=== PATIENT | male | born 1980 | race Caucasian/White ===

== ENCOUNTER 2018-05-12 16:00 | Emergency (ER) | payer BC ==
[2018-05-12] MEDS ORDERED: Loperamide 2 MG Tab PO ONE (17:39)
[2018-05-12] MEDS ORDERED: Ondansetron 4 MG Tab.DIS PO ONE (17:39)
--- NOTE | 2018-05-12 17:39 | EDM.PDOC ---
ED HPI GENERAL MEDICAL PROBLEM - General Chief Complaint: General Stated Complaint: N\V, Loose stools, fever Time Seen by Provider: 05/12/18 16:30 Source of Information: Reports: Patient History Limitations: Reports: No Limitations - History of Present Illness INITIAL COMMENTS - FREE TEXT/NARRATIVE: 4 day history of nausea/emesis/loose stools. Diarrhea and cramping was main issue. Took PeptoBismol with minimal relief. Only several episodes of emesis. Overall things have improved. Appetite is still down. Needs [place] note. Some sweating/hot flashes reported. No other acute changes per patient. - Related Data Allergies Allergy/AdvReac Type Severity Reaction Status Date / Time No Known Allergies Allergy Verified 05/12/18 16:04 Home Meds: Home Meds Insulin Glargine,Hum.Rec.Anlog [[place] Solostar] 6 unit SQ DAILY 05/12/18 [ History] Lisinopril 10 mg PO DAILY@2100 05/12/18 [History] SitaGLIPtin [Januvia] 100 mg PO DAILY 05/12/18 [History] metFORMIN [Glucophage XR] 500 mg PO BIDMEALS 05/12/18 [History] Past Medical History Cardiovascular History: Reports: Hypertension Endocrine/Metabolic History: Reports: Diabetes, Type II, Obesity/BMI 30+ Social & Family History - Tobacco Use Smoking Status *Q: Never Smoker Second Hand Smoke Exposure: No - Caffeine Use Caffeine Use: Reports: None - Recreational Drug Use Recreational Drug Use: No ED ROS GENERAL - Review of Systems Review Of Systems: See Below Constitutional: Reports: Chills, Fatigue, Decreased Appetite, Other (hot flashes ). Denies: Weight Loss HEENT: Reports: No Symptoms Respiratory: Reports: No Symptoms Cardiovascular: Reports: No Symptoms GI/Abdominal: Reports: Abdominal Pain (crampy), Diarrhea, Decreased Appetite, Nausea, Vomiting. Denies: Black Stool, Bloody Stool, Constipation, Difficulty Swallowing, Distension, Hematemesis, Hematochezia : Reports: No Symptoms Musculoskeletal: Reports: Other (generalized aches) Skin: Reports: No Symptoms Neurological: Reports: No Symptoms. Denies: Headache Psychiatric: Reports: No Symptoms ED EXAM, GENERAL - Physical Exam Exam: See Below Exam Limited By: No Limitations General Appearance: Alert, WD/WN, No Apparent Distress, Obese Eye Exam: Bilateral Eye: EOMI, PERRL Ears: Normal External Exam, Normal Canal Nose: Normal Inspection Throat/Mouth: Normal Inspection, Normal Voice, No Airway Compromise Head: Atraumatic, Normocephalic Neck: Normal Inspection, Supple, Non-Tender, Full Range of Motion. No: Lymphadenopathy (L), Lymphadenopathy (R) Respiratory/Chest: No Respiratory Distress, Lungs Clear, Normal Breath Sounds, No Accessory Muscle Use Cardiovascular: Regular Rate, Rhythm, No Murmur, Tachycardia Peripheral Pulses: 2+: Radial (L), Radial (R) GI/Abdominal: Soft, Other (obese. Decreased bowel sounds throughout. No tenderness with palpation). No: Guarding, Rigid, Rebound (Male) Exam: Deferred Rectal (Males) Exam: Deferred Back Exam: No: CVA Tenderness (L), CVA Tenderness (R) Extremities: Slow Capillary Refill Neurological: Alert, Oriented, Normal Cognition, Normal Gait, No Motor/Sensory Deficits Psychiatric: Normal Affect, Normal Mood Skin Exam: Warm, Dry, Intact, Normal Color Course - Vital Signs Last Recorded V/S: Last Vital Signs Temp 37.1 C 05/12/18 20:20 Pulse 94 05/12/18 20:20 Resp 16 05/12/18 20:20 BP 137/80 05/12/18 20:20 Pulse Ox 100 05/12/18 20:20 - Orders/Labs/Meds Orders: Active Orders 24 hr Category Date Time Status UA W/MICROSCOPIC [URIN] Stat Lab 05/12/18 17:15 Ordered Sodium Chloride 0.9% [Saline Flush] Med 05/12/18 17:41 Active 10 ml FLUSH ASDIRECTED PRN Saline Lock Insert [OM.PC] Routine Oth 05/12/18 17:41 Ordered Medication Orders Sodium Chloride (Saline Flush) 10 ml FLUSH ASDIRECTED PRN PRN Reason: Keep Vein Open Labs: Laboratory Tests 05/12/18 05/12/18 05/12/18 Range/Units 17:15 17:20 17:20 WBC 6.0 (4.0-10.2) K/uL RBC 6.19 H (4.33-5.41) M/uL Hgb 16.5 (13.1-16.8) g/dL Hct 48.4 (39.0-49.0) % MCV 78.2 L (84.0-98.0) fL MCH 26.7 L (28.2-33.3) pg MCHC 34.1 (31.7-36.0) g/dL RDW 14.9 H (11.2-14.1) % Plt Count 201 (150-350) K/uL Neut % (Auto) 65.2 (45.0-80.0) % Lymph % (Auto) 21.6 (10.0-50.0) % [place] % (Auto) 11.4 (2.0-14.0) % Eos % (Auto) 1.3 (0.0-5.0) % Baso % (Auto) 0.5 (0.0-2.0) % Neut # (Auto) 3.93 (1.40-7.00) K/uL Lymph # (Auto) 1.30 (0.50-3.50) K/uL [place] # (Auto) 0.69 (0.00-1.00) K/uL Eos # (Auto) 0.08 (0.00-0.50) K/uL Baso # (Auto) 0.03 (0.00-0.20) K/uL Sodium 136 (136-145) mmol/L Potassium 3.5 (3.5-5.1) mmol/L Chloride 99 (98-107) mmol/L Carbon Dioxide 27.4 (21.0-32.0) mmol/L BUN 9 (7-18) mg/dL Creatinine 0.84 (0.51-1.17) mg/dL Est Cr Clr Drug Dosing 126.99 mL/min Estimated GFR (MDRD) > 60 mL/min Glucose 283 H (74-106) mg/dL Calcium 8.8 (8.5-10.1) mg/dL Total Bilirubin 1.1 H (0.2-1.0) mg/dL AST 26 (15-37) U/L ALT 56 (12-78) U/L Alkaline Phosphatase 70 (46-116) IU/L Total Protein 7.5 (6.4-8.2) g/dL Albumin 3.2 L (3.4-5.0) g/dL Specimen Type Urinblad Urine Color Yellow Urine Appearance Clear Urine pH 6.0 (5.0-9.0) Ur Specific [place] 1.025 (1.005-1.030) Urine Protein 30 H (NEGATIVE) mg/dL Urine Glucose (UA) >=1000 H (NEGATIVE) mg/dL Urine Ketones Trace H (NEGATIVE) mg/dL Urine Occult Blood Trace-intact H (NEGATIVE) Urine Nitrite Negative (NEGATIVE) Urine Bilirubin Negative (NEGATIVE) Urine Urobilinogen 0.2 (0.2-1.0) E.U./dL Ur Leukocyte Esterase Negative (NEGATIVE) Urine RBC 0-5 /HPF Urine WBC 0-5 /HPF Ur Epithelial Cells Few /LPF Urine Bacteria Rare (NONE TO FEW) /HPF Meds: Medications Generic Name Dose Route Start Last Admin Trade Name Freq PRN Reason Stop Dose Admin Sodium Chloride 10 ml 05/12/18 17:41 Saline Flush FLUSH ASDIRECTED PRN Keep Vein Open Discontinued Medications Generic Name Dose Route Start Last Admin Trade Name Freq PRN Reason Stop Dose Admin Sodium Chloride 1,000 mls @ 999 mls/hr 05/12/18 17:40 05/12/18 19:14 Normal Saline IV 05/12/18 18:40 999 mls/hr .BOLUS ONE Administration Sodium Chloride 1,000 mls @ 999 mls/hr 05/12/18 20:06 05/12/18 20:16 Normal Saline IV 05/12/18 21:06 999 mls/hr .BOLUS ONE Administration Loperamide HCl 4 mg 05/12/18 17:39 05/12/18 18:19 Imodium Ad PO 05/12/18 17:40 4 mg ONETIME ONE Administration Ondansetron HCl 4 mg 05/12/18 17:39 05/12/18 18:20 Zofran Odt PO 05/12/18 17:40 4 mg ONETIME ONE Administration - Re-Assessments/Exams Free Text/Narrative Re-Assessment/Exam: 05/12/18 20:11 Initial heart rate 114. BP elevated. Blood sugar 280, some ketones in urine, glucose noted in urine. Normal WBC. Given history/exam along with prolonged cap refill, dehydration suspected. Bolus of NS given along with Zofran/Imodium. Second bolus ordered when patient had not yet urinated after receiving most of initial bolus. Suspect viral GI illness but cannot rule out other causes completely. Patient denies eating anything unusual/of poor quality. No one else he knows is sick with similar symptoms. [employer] work note given. He is to follow up as needed if symptoms do not continue to improve 05/12/18 22:33 Patient felt much better at time of discharge. Heart rate/BP much improved. Significantly prolonged stay in ER due to multiple patients being evaluated in ER at same time, including two that required transfer. Departure - Departure Time of Disposition: 21:30 Disposition: Home, Self-Care 01 Condition: Good Clinical Impression: Dehydration, Gastroenteritis - Discharge Information Instructions: Viral Gastroenteritis, Adult, [id number], Dehydration, Adult, [id number] Referrals: Irene Lipscomb PA-C [Primary Care Provider] - Forms: ED Department Discharge Additional Instructions: Advance diet as tolerated. If symptoms do not continue to improve then please follow up for re-evaluation. As discussed, there is sometimes a need for stool sample to test for other causes of diarrhea. Your blood sugar was over 200 tonight. You should be checking your blood sugar 3-4 times a day regularly to see how different foods effect your levels. Highly recommend lowering your daily carb intake as discussed. Avoid processed food/sugars/flour containing food Follow up otherwise as needed. - My Orders Last 24 Hours: My Active Orders 05/12/18 17:15 UA W/MICROSCOPIC [URIN] Stat 05/12/18 17:41 Sodium Chloride 0.9% [Saline Flush] 10 ml FLUSH ASDIRECTED PRN Saline Lock Insert [OM.PC] Routine - Assessment/Plan Last 24 Hours: My Active Orders 05/12/18 17:15 UA W/MICROSCOPIC [URIN] Stat 05/12/18 17:41 Sodium Chloride 0.9% [Saline Flush] 10 ml FLUSH ASDIRECTED PRN Saline Lock Insert [OM.PC] Routine
[2018-05-12] MEDS ORDERED: Sodium Chloride 0.9% 1,000 ML IV ONE ×2 (17:40→20:06)
[2018-05-12] MEDS ORDERED: Sodium Chloride 0.9% 10 ML Syringe FLUSH PRN (17:41)
[2018-05-12 17:44] LABS: CHLORIDE,CL 99 mmol/L (98-107); SODIUM,NA 136 mmol/L (136-145)
== END 2018-05-12 21:37 | disposition home or self-care (01) ==
LOC: LL.ED 16:00
DX: E86.0 Dehydration (principal); K52.9 Noninfective gastroenteritis and colitis, unspecified; I10 Essential (primary) hypertension; E11.9 Type 2 diabetes mellitus without complications; Z79.4 Long term (current) use of insulin; Z79.899 Other long term (current) drug therapy
CPT/HCPCS: 36415; 80053; 81001; 85025; 96360; 96361; 99284; A9270-GY; J7030